=== PATIENT | male | born 1995 | race Caucasian/White ===

== ENCOUNTER 2018-11-14 13:17 | Emergency (ER) | payer OTHER ==
--- NOTE | 2018-11-14 13:48 | Emergency Department Record ---
History of Present Illness - General Chief complaint: Male Urogenital Problem Stated complaint: RT TESTICLE PAIN Time Seen by Provider: 11/14/18 13:39 Source: Patient, RN notes reviewed Mode of Arrival: Ambulatory - History of Present Illness Initial comments: right groin pain and right scrotum pain. Started yesterday playing basketball Onset/Timin -: Days(s) Location: Right inguinal region, Right testicle Severity: Moderate Severity scale (1-10): 5 Quality: Aching, Sharp Consistency: Intermittent Improves with: Rest - Related Data Home Medications Medication Instructions Recorded Confirmed Last Taken No Home Med [NO HOME MEDS] 11/14/18 11/14/18 Unknown Allergies Allergy/AdvReac Type Severity Reaction Status Date / Time No Known Drug Allergies Allergy Verified 11/14/18 13:27 Travel Screening - Travel/Exposure Within Last 30 Days Have you traveled within the last 30 days?: No - Travel/Exposure Within Last Year Have you traveled outside the [place] in the last year?: No - Additonal Travel Details Have you been exposed to anyone with a communicable illness?: No - Travel Symptoms Symptom Screening: None Review of Systems Reviewed: No additional complaints except as noted below Constitutional: Reports: As per HPI. Denies: Chills, Fever, Malaise, Night sweats, Weakness, Weight change Eyes: Reports: As per HPI. Denies: Eye discharge, Eye pain, Photophobia, Vision change ENT: Reports: As per HPI. Denies: Congestion, Dental pain, Ear pain, Epistaxis , Hearing loss, Throat pain Respiratory: Reports: As per HPI. Denies: Cough, Dyspnea, Hemoptysis, Stridor, Wheezes Cardiovascular: Reports: As per HPI. Denies: Arrhythmia, Chest pain, Dyspnea on exertion, Edema, Murmurs, Orthopnea, Palpitations, Paroxysmal nocturnal dyspnea, Rheumatic Fever, Syncope Endocrine: Reports: As per HPI. Denies: Fatigue, Heat or cold intolerance, Polydipsia, Polyuria Gastrointestinal: Reports: As per HPI. Denies: Abdominal pain, Constipation, Diarrhea, Hematemesis, Hematochezia, Melena, Nausea, Vomiting Genitourinary: Reports: As per HPI. Denies: Dysuria, Frequency, Hematuria, Incontinence, Retention, Testicular pain, Testicular mass, Urgency Musculoskeletal: Reports: As per HPI. Denies: Arthralgia, Back pain, Gout, Joint swelling, Myalgia, Neck pain Skin: Reports: As per HPI. Denies: Bruising, Change in color, Change in hair/ nails, Lesions, Pruritus, Rash Neurological: Reports: As per HPI. Denies: Abnormal gait, Confusion, Headache, Numbness, Paresthesias, Seizure, Tingling, Tremors, Vertigo, Weakness Psychiatric: Reports: As per HPI. Denies: Anxiety, Auditory hallucinations, Depression, Homicidal thoughts, Suicidal thoughts, Visual hallucinations Hematological/Lymphatic: Reports: As per HPI. Denies: Anemia, Blood Clots, Easy bleeding, Easy bruising, Swollen glands Past Medical History - SOCIAL HISTORY Smoking Status: Current every day smoker Alcohol Use: Occasional Drug Use: None - RESPIRATORY Hx Respiratory Disorders: No Hx Asthma: No - CARDIOVASCULAR Hx Cardio Disorders: No - NEURO Hx Neuro Disorders: No - GI Hx GI Disorders: No - Hx Genitourinary Disorders: No - ENDOCRINE Hx Endocrine Disorders: No - MUSCULOSKELETAL Hx Musculoskeletal Disorders: No - PSYCH Hx Psych Problems: No - HEMATOLOGY/ONCOLOGY Hx Hematology/Oncology Disorders: No Family Medical History Any Significant Family History?: Yes Physical Exam - General General Appearance: Alert, Oriented x3, Cooperative, No acute distress - Head Head exam: Normal inspection - Eye Eye exam: Normal appearance, PERRL Pupils: Normal accommodation - ENT ENT exam: Normal exam, Mucous membranes moist, Normal external ear exam, Normal orophraynx, TM's normal bilaterally Ear exam: Normal external inspection. negative: External canal tenderness Nasal Exam: Normal inspection. negative: Discharge, Sinus tenderness Mouth exam: Normal external inspection, Tongue normal Teeth exam: Normal inspection. negative: Dental caries Throat exam: Normal inspection. negative: Tonsillar erythema, Tonsillar exudate - Neck Neck exam: Normal inspection, Full ROM. negative: Tenderness - Respiratory Respiratory exam: Normal lung sounds bilaterally. negative: Respiratory distress - Cardiovascular Cardiovascular Exam: Regular rate, Normal rhythm, Normal heart sounds - GI/Abdominal GI/Abdominal exam: Soft, Normal bowel sounds, Tenderness (right groin pain , no pain palpation of testicle and testicle is in the normal alignment) - Rectal Rectal exam: Deferred - exam: Deferred - Extremities Extremities exam: Normal inspection, Full ROM, Normal capillary refill. negative: Tenderness - Back Back exam: Reports: Normal inspection, Full ROM. Denies: Muscle spasm, Rash noted, Tenderness - Neurological Neurological exam: Alert, Normal gait, Oriented X3, Reflexes normal - Psychiatric Psychiatric exam: Normal affect, Normal mood - Skin Skin exam: Dry, Intact, Normal color, Warm Course Vital Signs 11/14/18 13:22 Temperature 98.3 F Pulse Rate 77 Respiratory 16 Rate Blood Pressure 142/73 Pulse Ox 99 Medical Decision Making - Data Complexity MDM Data: Labs Ordered and/or Reviewed, X-Ray Ordered and/or Reviewed (US of scrotum good blood flow bilaterally) - Lab Data Result diagrams: 11/14/18 15:30 11/14/18 15:30 Disposition Clinical Impression: Hydrocele in adult Groin strain Qualifiers: Encounter type: initial encounter Laterality: right Qualified Code(s): S76.211A - Strain of adductor muscle, fascia and tendon of right thigh, initial encounter Disposition: Home, Self-Care Condition: (1) Good Instructions: Groin Pain (ED) Additional Instructions: follow up with Dr Qureshi as soon as possible motrin 600 mg three times a day Forms: Patient Portal Access Time of Disposition: 16:23 Quality - Quality Measures Quality Measures: N/A - Blood Pressure Screening Does Patient Have Any of the Following: No Blood Pressure Classification: Hypertensive Reading Systolic Measurement: 142 Diastolic Measurement: 73 Screening for High Blood Pressure: < Pre-Hypertensive BP, F/U Documented > [ [id number]] Pre-Hypertensive Follow-up Interventions: Referral to alternative/primary care provider.
[2018-11-14 15:38] LABS: URINE APPEARANCE CLEAR; URINE BILIRUBIN NEGATIVE (NEGATIVE); URINE BLOOD NEGATIVE (NEGATIVE); URINE COLOR YELLOW; URINE GLUCOSE (UA) NEGATIVE (NEGATIVE); URINE KETONE NEGATIVE (NEGATIVE); URINE LEUKOCYTE ESTERASE NEGATIVE (NEGATIVE); URINE NITRITE NEGATIVE (NEGATIVE); URINE PROTEIN NEGATIVE (NEGATIVE); URINE UROBILINOGEN 0.2 E.U./dL (0.20 - 1.00)
[2018-11-14 15:39] LABS: BASO % 0.2 % (0-6); EOS % 2.5 % (0-6); GRAN % 59.3 % (47-80); HEMATOCRIT 42.2 % (42.0-52.0); HEMOGLOBIN 14.8 gm/dl (14.0-18.0); LYMPH % 27.3 % (16-45); MEAN CELL VOLUME 88.3 fl (81-97); MEAN CORPUSCULAR HGB CONC 35.1 g/dl (32-36); MEAN PLATELET VOLUME 8.6 fl (7.4-10.4); MONO % 10.7 % (0-9); PLATELET COUNT 250 K/uL (130-400); RED BLOOD COUNT 4.78 M/uL (4.40-5.70); RED CELL DISTRIBUTION WIDTH 12.7 % (11.5-14.5)
[2018-11-14 15:48] LABS: BLOOD UREA NITROGEN 15 mg/dL (6-20); EST GLOMERULAR FILTRATION RATE > 60 mL/min
[2018-11-14 15:51] LABS: GLUCOSE,RANDOM 97 mg/dL (74-109)
--- NOTE | 2018-11-15 20:34 | ULTRASOUND REPORT ---
EXAM: ULTRASOUND SCROTUM HISTORY: RIGHT TESTICULAR PAIN WHILE PLAYING BASKETBALL. TECHNIQUE: Routine scrotal ultrasound. COMPARISON: CT abdomen and pelvis 06/02/2011. FINDINGS: The right testicle measures 4.2 x 2.6 x 2.3 cm. The left testicle measures 4.1 x 2.5 x 2.3 cm. Homogeneous parenchymal echotexture bilaterally. No intratesticular mass. Bilateral intratesticular arterial and Doppler waveforms. Unremarkable appearance of the epididymides. Within the right hemiscrotum posterior to the testicle, there is a thick-walled fluid-containing structure measuring approximately 1.7 x 0.7 x 1.2 cm. Some peripheral color-flow is noted. Nonspecific focal area of anechoic fluid in the left inguinal canal region measuring up to 1.4 cm. IMPRESSION: 1. NO EVIDENCE OF TESTICULAR TORSION. 2. THICK-WALLED FLUID-CONTAINING STRUCTURE WITHIN THE RIGHT HEMISCROTUM; APPEARANCE IS INDETERMINATE AND COULD REPRESENT INTRASCROTAL BOWEL RELATED TO AN INGUINAL HERNIA, A THICK-WALLED EPIDIDYMAL CYST, OR COMPLEX HYDROCELE. 3. NONSPECIFIC SMALL FOCUS OF FLUID IN THE LEFT INGUINAL REGION MAY ALSO RELATE TO A HERNIA VS. HYDROCELE. JOB NUMBER: [id number] [facility]
== END 2018-11-14 16:33 | disposition home or self-care (01) ==
LOC: ER 13:17
DX: S76.211A Strain of adductor muscle, fascia and tendon of right thigh, initial encounter (principal); N43.3 Hydrocele, unspecified; X58.XXXA Exposure to other specified factors, initial encounter; Y93.67 Activity, basketball; F17.210 Nicotine dependence, cigarettes, uncomplicated
CPT/HCPCS: 76870; 80048; 81003; 85025; 99283; 99284